=== PATIENT | male | born 1965 | race Caucasian/White ===

== ENCOUNTER 2020-04-08 06:55 | Emergency (ER) | payer MEDICARE ==
[2020-04-08] MEDS ORDERED: Nitroglycerin 0.4 MG TAB 1 EACH ONE (07:09)
[2020-04-08] MEDS ORDERED: Furosemide 40 MG/4 ML VIAL ONE (07:09)
[2020-04-08 07:16] LABS: #Basophils 0.1 thou/uL (0.0-0.2); #Eosinphils 0.3 thou/uL (0.0-0.7); #Lymphocytes 1.6 thou/uL (1.20-3.40); #Monocytes 0.5 thou/uL (0.11-0.59); %Basophils 0.8 % (0.0-1.0); %Eosinophils 1.7 % (0.0-10.0); %Lymphocytes 10.4 % (21.0-51.0); %Monocytes 3.4 % (0.0-10.0); %Neutrophils 83.7 % (42.0-75.0); Hemoglobin 11.2 g/dL (14.0-18.0); Mean Corpuscular HGB CONC 32.7 g/dL (32.0-36.0); Mean Corpuscular Volume 97.8 fL (78.0-98.0); Platelet Count 187 thou/uL (130-400); RBC Distribution Width 12.2 % (11.5-14.5); Red Blood Cell (RBC) Count 3.52 mill/uL (4.70-6.10); White Blood Cell (WBC) Count 15.5 thou/uL (4.8-10.8)
[2020-04-08 07:33] LABS: Phosphorus 6.8 mg/dL (2.3-4.7)
[2020-04-08 07:35] LABS: ALT (SGPT) 20 U/L (8-55); AST (SGOT) 19 U/L (5-34); Albumin 4.2 g/dL (3.5-5.0); Alkaline Phosphatase 124 U/L (40-110); Anion Gap 27 mmol/L (10-20); BUN (Urea Nitrogen) 97 mg/dL (8.4-25.7); Bilirubin, Total 0.8 mg/dL (0.2-1.2); Calc. Creatinine Clearance 0 mL/min (70-130); Calcium 7.3 mg/dL (7.8-10.44); Carbon Dioxide 17 mmol/L (22-29); Chloride 105 mmol/L (98-107); Globulin 3.4 g/dL (2.4-3.5); Glucose 169 mg/dL (70-105); Magnesium 2.3 mg/dL (1.6-2.6); Potassium 5.3 mmol/L (3.5-5.1); Protein, Total 7.6 g/dL (6.0-8.3); Sodium 144 mmol/L (136-145)
[2020-04-08 07:38] LABS: Calcium, Ionized 0.88 mmol/L (1.15-1.33); Chloride 110 mmol/L (98-107); Sodium 139 mmol/L (138-145)
[2020-04-08 07:45] LABS: Base Excess-Venous -7.3 mmol/L (-2.0 to 3.0); Bicarbonate (HCO3v) 21.2 mmol/L (22.0-28.0); CO2 Tension (PvCO2) 54.7 mmHg (40.0-50.0); Hemoglobin - Calc 12.5 g/dL (14.0-18.0); Potassium 5.6 mmol/L (3.5-5.1); T. Carbon Dioxide 22.8 mmol/L (22.0-28.0); vO2 Saturation-calc 99.2 % (60.0-85.0)
--- NOTE | 2020-04-08 08:16 | RAD ---
EXAM: Single view of the chest HISTORY: Dyspnea COMPARISON: None FINDINGS: Single view of the chest shows an enlarged cardiomediastinal silhouette. Scattered multifoc al scattered opacities in the lungs. There may be a small right pleural effusion. No acute osseous abnormality. IMPRESSION: 1. Scattered multifocal infiltrates 2. Small right pleural effusion
== END 2020-04-08 08:34 | disposition short-term general hospital (02) ==
LOC: MADERS 06:55
DX: R06.00 Dyspnea, unspecified (principal); I11.0 Hypertensive heart disease with heart failure; I50.9 Heart failure, unspecified; E66.9 Obesity, unspecified; N18.6 End stage renal disease; Z79.899 Other long term (current) drug therapy; Z99.2 Dependence on renal dialysis
CPT/HCPCS: 71045; 80053; 82330; 82803; 83735; 83880; 84100; 84484; 85025; 93005; 96374; J1940